=== PATIENT | male | born 1950 | race Caucasian/White ===

== ENCOUNTER 2018-08-16 08:28 | Emergency (ER) | payer MEDICARE, BC ==
[~2018-08-16] VITALS: Ht 195.6 cm; Wt 118.2 kg
[2018-08-16] MEDS ORDERED: diltiazem 5mg/ml 5ml inj. IV ONE (08:45)
[2018-08-16] MEDS ORDERED: normal saline 1000ml 1,000 ML IV ONE (08:45)
[2018-08-16] MEDS ORDERED: magnesium 2GM in 50ml NS 50 ML IV ONE (08:45)
[2018-08-16 09:12] LABS: BASOPHILS % (AUTO) 0.4 % (0-1); EOSINOPHILS # (AUTO) 0.1 X10'3 (0-0.9); EOSINOPHILS % (AUTO) 1.2 % (0-6); HEMATOCRIT 49.5 % (42.0-52.0); HEMOGLOBIN 16.6 g/dl (14.0-17.9); LYMPHOCYTES # (AUTO) 1.2 X10'3 (1.1-4.8); LYMPHOCYTES % (AUTO) 12.9 % (21-51); MEAN CORPUSCULAR HEMOGLOBIN 29.3 PG (27.0-31.0); MEAN CORPUSCULAR HGB CONC 33.5 % (33.0-36.5); MEAN CORPUSCULAR VOLUME 87.3 FL (78-98); MEAN PLATELET VOLUME 9.8 FL (7.4-10.4); MONOCYTES # (AUTO) 0.6 X10'3 (0-0.9); MONOCYTES % (AUTO) 5.8 % (2-12); NEUTROPHILS # (AUTO) 7.6 X10'3 (1.8-7.7); NEUTROPHILS % (AUTO) 79.7 % (42-75); PLATELET COUNT 223 X10'3 (140-440); RED BLOOD COUNT 5.68 X10'6 (4.70-6.10); RED CELL DISTRIBUTION WIDTH 15.5 % (11.5-14.5); WHITE BLOOD COUNT 9.6 X10'3 (4.5-11.0)
[2018-08-16 09:19] LABS: PARTIAL THROMBOPLASTIN TIME 30 SECONDS (22-32); PROTHROMBIN TIME 10.3 SECONDS (9.0-12.0)
[2018-08-16 09:21] LABS: ALANINE AMINOTRANSFERASE 19 U/L (12-78); ALBUMIN 3.2 G/DL (3.4-5.0); ALBUMIN/GLOBULIN RATIO 0.7 (1.1-1.5); ALKALINE PHOSPHATASE 115 IU/L (46-116); ANION GAP 6 (8-16); ASPARTATE AMINO TRANSFERASE 18 U/L (10-37); BILIRUBIN,TOTAL 0.7 MG/DL (0.1-1.0); BLOOD UREA NITROGEN 12 MG/DL (7-18); BUN/CREATININE RATIO 11.8 (5.4-32.0); CALCIUM 8.9 MG/DL (8.5-10.1); CHLORIDE 105 MMOL/L (99-107); CREATININE 1.02 MG/DL (0.60-1.10); GLUCOSE 72 MG/DL (70-104); SODIUM 141 MMOL/L (135-145); TOTAL CARBON DIOXIDE 29.6 MMOL/L (24-32); eGFR 73 ML/MIN
[2018-08-16] MEDS ORDERED: sotalol 80mg tablet PO ONE (10:05)
[2018-08-16 10:40] VITALS: BP 146/85
== END 2018-08-16 10:41 | disposition home or self-care (01) ==
LOC: ER 08:28
DX: I48.91 Unspecified atrial fibrillation (principal); R07.89 Other chest pain; Z87.442 Personal history of urinary calculi; Z86.718 Personal history of other venous thrombosis and embolism
CPT/HCPCS: 36415; 71045; 80053; 84484; 85025; 85610; 85730; 93005; 96374; 99284; J3475; J3490

== ENCOUNTER → 2025-07-09 | Day surgery (SDC) | payer MEDICARE, BC ==
[2025-07-08 12:08] LABS: MEAN PLATELET VOLUME 9.6 FL (7.4-10.4); RED CELL DISTRIBUTION WIDTH 14.8 % (11.5-14.5)
[2025-07-08 12:24] LABS: INR 1.0 INR
[2025-07-08 12:29] LABS: CREATININE 0.89 MG/DL (0.60-1.10); TOTAL CARBON DIOXIDE 32.8 MMOL/L (24-32); eGFR 84 ML/MIN
[~2025-07-09] VITALS: Ht 195.6 cm; Wt 122.0 kg
[~2025-07-09] MED LIST: APIX5TAB3 PO; FLUO10CA28 PO; HYDR12.55 PO; LOSA-416 PO; MIDAZolam 1mg/ml 10ml vial IV ONE; SOTA80TA73 PO; amiodarone 150mg/dext, iso-os 100 ML IV ONE; atropine 0.1mg/ml 10ml syringe IV ONE; morphine 10mg/ml inj. IV ONE; normal saline 1000ml 1,000 ML IV SCH
--- NOTE | 2025-07-09 07:11 | ELECTROCARDIOGRAPH REPORT ---
[facility] Test Date: 2025-07-09 Test Time: 07:07:44 Pat Name: APOLLO HOLLOWAY Department: [facility] Patient ID: [id number] Room: Gender: M Sample Cutter: CLYDE : 1950 Requested By: LESLEY REHMAN Order Number: [id number] Reading MD: Dr. JONA Rehman Measurements Intervals [place] Rate: 45 P: 6 MN: 188 QRS: 48 QRSD: 127 T: 31 QT: 542 QTc: 469 Interpretive Statements Sinus bradycardia IVCD, consider atypical RBBB Electronically Signed On 07-09-2025 19:48:[address] JONA Rehman Please click the below link to view image of tracing.
--- NOTE | 2025-07-11 03:57 | PROGRESS NOTE ---
DATE: 07/09/2025 DICTATING PHYSICIAN: JONA Quevedo MD SUBJECTIVE: The patient is a 75-year-old male with history of history of hypertension, hyperlipidemia, sick sinus syndrome with atrial fibrillation. The patient has been having atrial flutter on 05/05/2025. He has been treated on sotalol and he had recurrence of atrial flutter and his sotalol was increased to 120 mg p.o. q.a.m. and 80 mg p.o. q.p.m. and after discussing the risks, benefits, and alternative options, the patient came in for electrical cardioversion and was found to have normal sinus rhythm, converted, but he was bradycardic with heart rate at 45 per minute. OBJECTIVE: GENERAL: The patient is seen and examined. The patient is comfortable at rest. Asymptomatic. VITAL SIGNS: Pulse 47. Blood pressure 140/70. NECK: No JVD. Carotids equally well felt. CARDIAC: Regular rate and rhythm. S1, S2 normal. No S3, S4 or murmurs. LUNGS: Clear to auscultation bilaterally. ABDOMEN: Soft, nontender, nondistended. Bowel sounds present. EXTREMITIES: No edema, cyanosis, or clubbing. LABORATORY DATA: WBC 5.4, hemoglobin 14.3, hematocrit 42.4, platelet count 222. INR was 1. BUN 12, creatinine 0.89. IMPRESSION AND PLAN: A 75-year-old male with, * History of persistent atrial flutter, has already spontaneously converted to normal sinus rhythm. The patient is on apixaban 5 mg p.o. b.i.d. and sotalol 120 mg p.o. q.a.m. and 80 mg p.o. q.p.m. We will alternate the morning dose to 80 mg and 120 going forward. Hold if the heart rate less than 50. * Hypertension, hyperlipidemia Counseled on coronary risk factor modification. * Sick sinus syndrome. The patient continues to have some bradycardia. Recommend event monitor. Potential need for pacemaker procedure was discussed with the patient. * History of snoring. Recommended sleep study to rule out any underlying sleep apnea. The patient has been referred to . volunteer patient representative Dr. Nisha sin for further evaluation * Other comorbidities include history of autoimmune neuropathy. The patient continues to smoke a quarter pack per day. Counseled on smoking cessation. JONA Quevedo MD TID: [id number] RECEIPT: [id number] YANIV cc: MTDD
== END | disposition home or self-care (01) ==
LOC: SSTAY O 06:47
PROVIDERS: ATTEND Internal Medicine Cardiovascular Disease
DX: I48.3 Typical atrial flutter (principal); I49.5 Sick sinus syndrome; Z53.8 Procedure and treatment not carried out for other reasons; E78.5 Hyperlipidemia, unspecified; I10 Essential (primary) hypertension; G47.30 Sleep apnea, unspecified; Z98.890 Other specified postprocedural states; Z87.891 Personal history of nicotine dependence; Z82.3 Family history of stroke; Z82.49 Family history of ischemic heart disease and other diseases of the circulatory system; Z71.6 Tobacco abuse counseling; Z79.01 Long term (current) use of anticoagulants; Z79.899 Other long term (current) drug therapy
CPT/HCPCS: 36415; 80048; 85025; 85610; 93005